=== PATIENT | male | born 1970 | race Two or more races ===

== ENCOUNTER → 2024-02-10 | Outpatient (CLI) | payer MEDICAID, SELFPAY ==
--- NOTE | 2024-02-10 16:52 | XR_ITS ---
Examination: Knee bilateral, 6 views Technique: Knee AP, lateral, oblique each knee total 6 views Date and time of exam: February 10, 2024 1704 hrs. Indications: Bilateral knee pain beginning 2 years ago. Findings: Mild osteopenia No fracture or dislocation involving either knee No erosive or other significant arthritic change involving either knee No opaque foreign bodies Impression: No erosive or other significant arthritic change involving either knee
== END | disposition home or self-care (01) ==
PROVIDERS: PCP Physician Assistant; Referring Provider Physician Assistant; Visit Provider Physician Assistant
DX: M25.562 Pain in left knee (principal); M25.561 Pain in right knee
CPT/HCPCS: 73562

== ENCOUNTER 2024-04-09 16:04 | Emergency (ER) | payer MEDICAID, SELFPAY ==
--- NOTE | 2024-04-09 16:14 | EKG_ITS ---
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
[2024-04-09 16:18] VITALS: BP 130/77; PULSE 63; RESP 18; TEMP 37.1; O2SAT 97; BMI 31.1
--- NOTE | 2024-04-09 16:23 | XR_ITS ---
Examination: PA lateral chest 2 views Technique: Upright PA lateral chest 2 views Exam date and time: April 09, 2024 1633 hrs. Indications: Difficulty breathing chest pain today. Findings: Early bibasilar lingular segment left upper lobe pneumonia Normal heart size The osseous structures are intact Impression: Early bibasilar lingular segment left upper lobe pneumonia
--- NOTE | 2024-04-09 16:23 | PD.EDRME ---
Rapid Medical Screening Exam E Arrival date/time: 04/09/24 16:04 54-year-old male with a history of MIs presents to the emergency room with a chief complaint of 10 out of 10 sternal chest pain that radiates down his left arm x 1 day. Patient is also stating that she has had shortness of breath since yesterday. I have greeted and performed a focused initial assessment of this patient. A comprehensive ED assessment and evaluation of the patient, analysis of all test results, and completion of the medical decision making process will be conducted by additional ED providers. Chief Complaint: Chest Pain Vital signs: Vital Signs Temperature 98.7 F 04/09/24 16:18 Pulse Rate 63 04/09/24 16:18 Respiratory Rate 18 04/09/24 16:18 Blood Pressure 130/77 04/09/24 16:18 Pulse Oximetry (%) 97 04/09/24 16:18 Oxygen Delivery Method Room Air 04/09/24 16:18 Vital signs reviewed by provider: Yes
[2024-04-09 16:50] LABS: Basophils % (Auto) 1 % (0-2.5); Eosinophils # (Auto) 0.1 Thou/mm3 (0.0-0.5); Eosinophils % (Auto) 1 % (0-10); Hematocrit 41.6 % (41.0-53.0); Hemoglobin 14.1 g/dL (13.5-16.0); Immature Granulocytes % (Auto) 0 % (0-0); Immature Granulocytes Auto 0.01 Thou/mm3 (0.00-0.00); Lymphocytes % (Auto) 41 % (10-50); Mean Corpuscular HGB Conc 33.9 g/dl (31.0-37.0); Mean Corpuscular Hemoglobin 29.1 pg (25.0-35.0); Mean Corpuscular Volume 86 fL (80-100); Monocytes # (Auto) 0.6 Thou/mm3 (0.0-0.8); Monocytes % (Auto) 8 % (0-12); Neutrophils # (Auto) 3.6 Thou/mm3 (1.8-7.7); Neutrophils % (Auto) 50 % (37-80); Nucleated Red Blood Cell % 0 /100 WBC (0); Platelet Count 247 Thou/mm3 (140-440); RDW Standard Deviation 40.1 fL (35.1-43.9); Red Blood Count 4.84 Miln/mm3 (4.50-5.90); White Blood Count 7.2 Thou/mm3 (3.8-10.6)
[2024-04-09 17:05] LABS: Collection Type, Urine Clean Catch
[2024-04-09 17:08] LABS: Bilirubin,Urine Negative (Negative); Blood,Urine 2+ (Negative); Clarity,Urine Clear (Clear/Hazy); Color,Urine Lt-Yellow (Lt Yel-Yel); Glucose, Urine Negative (Negative); Hyaline Casts,Urine < 1 /hpf (0-1); Ketones,Urine Negative (Negative); Leukocyte Esterase,Urine Negative (Negative); Nitrite,Urine Negative (Negative); Protein,Urine Negative (Neg - Trace); RBC,Urine 16 /hpf (0-3); Squamous Epithelial Cell,Urine < 1 /hpf (0-5); Urobilinogen,Urine Negative mg/dL (0.0-1.0); WBC,Urine 1 /hpf (0-5)
[2024-04-09 17:08] LABS: B-Type Natriuretic Peptide < 20 pg/mL (0-100)
[2024-04-09 17:10] LABS: Alanine Aminotransferase 38 U/L (10-49); Albumin, Serum 4.8 gm/dL (3.5-5.0); Albumin/Globulin Ratio 1.8 (1.2-2.2); Alkaline Phosphatase 69 U/L (46-116); Anion Gap 9 (7-16); Aspartate Amino Transferase 17 U/L (0-34); BUN/Creatinine Ratio 12 Ratio (12-20); Blood Urea Nitrogen 12 mg/dL (9-23); Calcium 10.1 mg/dL (8.3-10.6); Calcium (Corrected) 10.1 mg/dL (8.5-10.1); Carbon Dioxide 24.1 mMol/L (20.0-31.0); Chloride 105 mMol/L (98-107); Estimated Creatinine Clearance 96.7 mL/min (>60); Globulin 2.6 gm/dL (2.3-3.5); Glucose 102 mg/dL (74-106); Magnesium 2.1 mg/dL (1.6-2.6); Osmolality,Calculated 275 (275-295); Potassium 4.1 mMol/L (3.4-5.1); Sodium 138 mMol/L (136-145); Total Protein 7.4 gm/dL (5.7-8.2); Troponin I < 0.002 ng/mL (0.0-0.045); eGFR > 60 See Note
[2024-04-09 17:11] LABS: INR 1.1 (0.9-1.3); Partial Thromboplastin Time 28.1 Seconds (22.0-36.0); Prothrombin Time 12.2 Seconds (9.0-12.2)
[2024-04-09 17:14] LABS: Amphetamine/Methamp Scrn,U Negative (Negative); Barbiturate Screen,Urine Negative (Negative); Benzodiazepines Screen,Urine Negative (Negative); Benzoylecgonine Screen, Ur Negative (Negative); Fentanyl Screen,Urine Negative (Negative); Opiate Screen,Urine Negative (Negative); THC Screen,Urine Negative (Negative)
[2024-04-09 19:21] VITALS: BP 129/79; PULSE 61; RESP 19; TEMP 36.6; O2SAT 97
[2024-04-09] MEDS: AZITHROMYCIN 250 MG TABLET 500 MG PO (20:25)
--- NOTE | 2024-04-09 20:26 | EDNOTE_ITS ---
ED Chest Pain RME/HPI General Chief Complaint: Chest Pain Stated Complaint: CHEST PAIN RADIATING TO BACK (SENT FROM DR. HOOD) Time Seen by Provider: 04/09/24 20:06 Arrival date/time: 04/09/24 16:04 Limitations: no limitations RME / HPI RME / HPI narrative: 04/09/24 16:04 54-year-old male with a history of MIs presents to the emergency room with a chief complaint of 10 out of 10 sternal chest pain that radiates down his left arm x 1 day. Patient is also stating that she has had shortness of breath since yesterday. I have greeted and performed a focused initial assessment of this patient. A comprehensive ED assessment and evaluation of the patient, analysis of all test results, and completion of the medical decision making process will be conducted by additional ED providers. DR. MULLINS MAIN ED EVALUATION: 54 year old male with past medical history significant for IL and atrial fibrillation presents to the Emergency Department with complaint of chest pain that radiates toe the left arm. Patient was seen at her PCP today and sent over for further evaluation. Associated symptoms include shortness of breath. No fevers, chills, nausea, vomiting, diarrhea, or other symptoms at this time. PCP is at [facility]. Related Data Previous Rx's ?Medication ?Instructions ?Recorded azithromycin 250 mg tablet 250 mg PO QDAY 4 days #4 ta bs 04/09/24 Allergies Allergy/AdvReac Type Severity Reaction Status Date / Time No Known Allergies Allergy Verified 04/09/24 16:08 Review of Systems Review of Systems Systems Reviewed: All systems reviewed, normal except as documented Narrative Review of Systems: GEN: No fever, no chills, no weight loss EYES: No discharge, no visual changes, no pain HEENT: No ear pain, no congestion, no sore throat PULM: + shortness of breath, no cough, no congestion CV: + chest pain that radiates toe the left arm, no dyspnea on exertion, no palpitations GI: No nausea, no vomiting, no diarrhea, no pain, no constipation : No frequency, no urgency and no dysuria MUSC/SKEL: + left arm pain, no back pain SKIN: No rash PSYCH: No hallucinations, no depression HEME/LYMPH: No easy bleeding or bruising tendencies NEURO: No weakness, no headache Past Medical History Social History SMOKING STATUS: Never smoker ED Exam General Limitations: Present no limitations General appearance: Present alert and in no apparent distress Head Head exam: Present atraumatic, normocephalic and normal inspection Eye Eye exam: Present normal appearance, PERRL and EOMI ENT ENT exam: Present normal exam, normal oropharynx and mucous membranes moist Neck Neck exam: Present normal inspection, full ROM and trachea midline Chest Chest inspection: Present normal inspection and symmetric chest wall rise Respiratory Respiratory exam: Present normal lung sounds bilaterally Cardiovascular Cardiovascular exam: Present regular rate, normal rhythm and normal heart sounds Abdominal Exam Abdominal exam: Present soft and normal bowel sounds Extremities Exam Extremities exam: Present normal inspection and full ROM Back Exam Back exam: Present normal inspection and full ROM Neurological Exam Neurological exam: Present alert, oriented X3 and CN II-XII intact Psychiatric Psychiatric exam: Present normal affect and normal mood Skin Skin exam: Present warm, dry, intact and normal color Course Quality Measures none Orders Category Date Time Status EKG (ED ONLY) *Do not use* NOW Care 04/09/24 16:14 Completed EKG (ED Only) Stat Exams 04/09/24 16:14 Draft XR chest 2V Stat Exams 04/09/24 16:23 Completed B-Type Natriuretic Peptide Stat Lab 04/09/24 16:29 Completed CBC Stat Lab 04/09/24 16:29 Completed Comprehensive Metabolic Panel Stat Lab 04/09/24 16:29 Completed Drug Screen,Urine Stat Lab 04/09/24 14:56 Completed Magnesium Stat Lab 04/09/24 16:29 Completed Partial Thromboplastin Time Stat Lab 04/09/24 16:29 Completed Prothrombin Time with INR Stat Lab 04/09/24 16:29 Completed Troponin I Stat Lab 04/09/24 16:29 Completed Urinalysis Stat Lab 04/09/24 14:56 Completed Azithromycin Po [Zithromax PO] Med 04/09/24 20:12 Discontinued 500 mg PO X1 ONE Vital Signs Vital signs: Vital Signs Temperature 98.7 F 04/09/24 16:18 Pulse Rate 63 04/09/24 16:18 Respiratory Rate 18 04/09/24 16:18 Blood Pressure 130/77 04/09/24 16:18 Pulse Oximetry (%) 97 04/09/24 16:18 Oxygen Delivery Method Room Air 04/09/24 16:18 Procedures -ED EKG Interpretation #1: Date of EK04/09/24 Time of EK:22 Rate: 65 Interpretation: Interpreted by me Additional EKG comment: sinus rhythm, rate 65, normal interval, normal axis, no STEMI, QTc 444 Chest Pain MDM Narrative MDM Narrative:: Rosa Isela Roach, am scribing for and in the presence of Dr. Mullins. Patient data External records reviewed:: PCP records Clinical information provided by:: patient Social determinants that could affect healthcare access:: none Patient has the following chronic illnesses:: IL and atrial fibrillation How is presenting disease/condition affected by chronic disease/condition?: exacerbated by Evaluation data The following diagnostics were reviewed and interpreted by me:: lab results, radiology exam(s) and EKG tracing(s) Lab and/or radiology exams considered but not ordered:: none Interpretation Summary: Procedure(s): XR chest 2V Accession Number(s): [id number] cc: Rosalee Small; [place]; Keaton Berry MD~ Examination: PA lateral chest 2 views Technique: Upright PA lateral chest 2 views Exam date and time: April 09, 2024 1633 hrs. Indications: Difficulty breathing chest pain today. Findings: Early bibasilar lingular segment left upper lobe pneumonia Normal heart size The osseous structures are intact Impression: Early bibasilar lingular segment left upper lobe pneumonia Dictated By: Keaton Berry MD Medications / Prescriptions Medications or Prescriptions considered but not ordered:: none Medication administrations:: Medication Administration History Discontinued Medications Azithromycin (Azithromycin 250 Mg Tablet) 500 mg PO X1 ONE Stop: 04/09/24 20:13 Last Admin: 04/09/24 20:25 Dose: 500 mg Documented By: SE see above Consultations Consultation(s) initiated? (list below): No Diagnosis Chest Pain Differential Diagnosis: atypical chest pain, costochondritis, chest pain and other (Atypical pneumonia) Most likely diagnosis given after review of the tests above:: Atypical pneumonia Admission Indicated Admission indicated?: not indicated Admission Request Was there a request for admission?: No Disposition Plan Disposition Plan: Discharge Discharge Attestation Discharge Attestation: The patient and all family members were given an opportunity to ask questions and understood the discharge instructions. Discharge instructions specifically effects, indications for sooner follow up or return to the emergency department, and the expected course of current diagnosis. Patient condition: Stable Discharge Plan Plan Patient Disposition: HOME (Self Care) Patient condition on transfer: Stable Prescriptions/Referrals Prescriptions/Med Rec: New azithromycin 250 mg tablet 250 mg PO QDAY 4 Days Qty: 4 0RF Rx Instructions: start on day 2 of therapy Referrals: Rosalee Small PA-C [Primary Care Provider] - In 1 week Problem List Clinical Impression: Atypical pneumonia Patient/Caregiver Discharge Instructions Education Materials: ED Pneumonia (Adult) Additional Instructions: Today your chest x-ray that shows that you have left basilar pneumonia. Please take Z-Luis for the next 4 days. You can follow-up with your primary care again on Saturday for recheck. Return to the emergency department for any worsening symptoms, or any other concerns. Please return to the emergency department for any worsening symptoms, or any other concerns Print Language: Japanese Stand Alone Forms: Mae Award Info., Patient Portal Info Letter
== END 2024-04-09 20:32 | disposition home or self-care (01) ==
PROVIDERS: Nurse Practitioner Family; Emergency Provider Emergency Medicine; PCP Physician Assistant
DX: J18.9 Pneumonia, unspecified organism (principal); I25.2 Old myocardial infarction
CPT/HCPCS: 36415; 71046; 80053; 80307; 81001; 83735; 83880; 84484; 85025; 85610; 85730; 93005; 99283; A9270

== ENCOUNTER → 2024-09-10 | Outpatient (CLI) | payer MEDICAID, SELFPAY ==
--- NOTE | 2024-09-10 16:55 | XR_ITS ---
Examination: Lumbar spine, 5 views Technique: Lumbar spine AP, lateral, coned lateral lower lumbar spine, bilateral obliques 5 views Exam date and time: September 10, 2024, 7032 hours INDICATIONS: Back pain one year. FINDINGS: Moderate osteopenia. No lumbar fracture. Diffuse mild lumbar disc narrowing [id number] lumbar spondylosis No spondylolisthesis IMPRESSION: Diffuse mild lumbar disc narrowing
== END | disposition home or self-care (01) ==
PROVIDERS: PCP Physician Assistant; Referring Provider Physician Assistant; Visit Provider Physician Assistant
DX: M48.061 Spinal stenosis, lumbar region without neurogenic claudication (principal)
CPT/HCPCS: 72110

== ENCOUNTER 2024-09-12 02:13 | Observation (INO) | payer MEDICAID, SELFPAY ==
[2024-09-12] VITALS (10 sets, daily range): BP systolic 109–121; BP diastolic 59–80; PULSE 56–79; RESP 17–95; TEMP 36.1–36.6; O2SAT 94–96; BMI 28.5
--- NOTE | 2024-09-12 | XR_ITS ---
Examinations: MRI Brain without intravenous contrast. MRA brain without intravenous contrast. MRA carotids without intravenous contrast 3-D vascular reconstructions Date and time of exam: September 12, 2024 1348 hours INDICATIONS: Stroke alert September 12, 2024, onset left arm weakness facial pain and numbness Technique: Multiple axial and sagittal images of the brain have been obtained MRA brain carotid images without contrast obtained, including 3-D postprocessing, vascular maximum intensity projection images Findings: Sellaturcica is not enlarged. The optic chiasm and infundibular stalk are not remarkable. Prepontine and interpeduncular cisterns are not enlarged. No localized enlargement of the medulla or neel. Fourth ventricle and cerebellar tonsils normal in position. Subacute hemorrhage is not seen. Fourth ventricle is midline. Mass in the cerebellopontine angle region is not evident. 7th and 8th nerve complexes exhibits symmetry. Globes are symmetrical with no retro-orbital mass. Increased white matter signal not seen Diffusion-weighted images demonstrate no focus of restricted diffusion Mass-effect upon the ventricular system is not identified. MRA carotid images no carotid stenoses. MRA brain images no cerebral or special lateral conclusions Impression: Negative for acute hemorrhage mass effect or midline shift No acute infarct. No MR findings diagnostic for demyelinating disease No significant carotid stenoses No cerebral large vessel arterial occlusions
--- NOTE | 2024-09-12 02:50 | XR_ITS ---
Examination: CT brain head without contrast. 2-D sagittal coronal reconstructions Date and time of exam:September 12, 2024, 0305 hours INDICATIONS: Stroke alert, onset left-sided arm weakness left-sided body numbness left facial numbness beginning 12 hours ago CTDI: vol (mGy):49.81 DLP: (mGycm):1044 Technique: Multiple CT axial sections of the brain have been obtained, 5 mm slice thickness. Contrast has not been administered. 2-D sagittal, coronal reconstructions have been obtained Low dose protocols were performed. One or more of the following dose reduction techniques were used; automated exposure control, adjustment of the mA and/or KV according to patient size, use of iterative reconstruction technique. Findings: No significant ventricular enlargement. Intra-axial or extra-axial hemorrhage density is not seen. No mass effect or midline shift Basal cisterns are not remarkable. Fourth ventricle is midline. Cranial vault intact. Impression: Negative for acute hemorrhage, mass effect or midline shift As clinically warranted, brain MRI follow-up would best assess for demyelinating disease, acute ischemic change
--- NOTE | 2024-09-12 02:50 | XR_ITS ---
Examination: AP chest single view TECHNIQUE: AP portable upright chest single view Date and time: September 12, 2024, 0450 hours Comparison April 09, 2024 INDICATIONS: Stroke alert, shortness of breath chest pain today. FINDINGS: Mild prominence left ventricle No aspiration pneumonia or pulmonary edema Moderate osteopenia IMPRESSION: No aspiration pneumonia or pulmonary edema
--- NOTE | 2024-09-12 02:50 | XR_ITS ---
Examination: CTA carotids with intravenous contrast CTA brain, head with intravenous contrast. 2-D sagittal, coronal reconstructions. 3-D reconstructions. Exam date and time: September 12, 2024, 0309 hours INDICATIONS: Stroke alert, onset left arm weakness left side of body numbness left facial numbness beginning 12 hours ago CTDI: vol (mGy) 25.73 DLP: (mGycm) 606 Technique: Multiple CTA axial brain, head carotid images post intravenous contrast injection 75 cc, [id number]. 2-D sagittal, coronal reconstructions. 3-D reconstructions, 3-D post processing including vascular maximum intensity projection images. Low dose protocols were performed. One or more of the following dose reduction techniques were used; automated exposure control, adjustment of the mA and/or KV according to patient size, use of iterative reconstruction technique. Findings: 15 mm enhancing left thyroid nodule No significant common carotid carotid bifurcation or internal carotid artery stenoses Dominant left vertebral artery in the neck with no critical stenoses. No cerebral large vessel arterial occlusions or thrombus IMPRESSION: 15 mm enhancing left thyroid nodule, consider dedicated thyroid sonography follow up No significant neck arterial stenoses No cerebral large vessel arterial occlusions or thrombus
--- NOTE | 2024-09-12 02:50 | EKG_ITS ---
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
--- NOTE | 2024-09-12 02:56 | PC.NURSE ---
Case Consult 09/12/2024 02:56:37 [facility] Case # [id number] has been created.
--- NOTE | 2024-09-12 03:13 | PD.EDNEURO ---
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 Patient/daughter deny AMS, seizures, N/V, vision changes, slurred speech, and dizziness. Patient took some prednisone yesterday. Limitations: no limitations Related Data Allergies Allergy/AdvReac Type Severity Reaction Status Date / Time No Known Allergies Allergy Verified 09/12/24 02:27 Review of Systems Review of Systems Systems Reviewed: All systems reviewed, normal except as documented Constitutional Constitutional: Reports system reviewed and no additional complaints, except as documented, Denies fever(s) and Denies headache(s) ENT Ears, Nose, Mouth, and Throat: Denies disequilibrium and Denies headache(s) Cardiovascular Cardiovascular: Reports system reviewed and no additional complaints, except as documented, Reports as per HPI, Reports chest pain and Denies dyspnea Respiratory Respiratory: Reports system reviewed and no additional complaints, except as documented, Denies cough and Denies dyspnea Gastrointestinal Gastrointestinal: Reports system reviewed and no additional complaints, except as documented, Denies abdominal pain, Denies nausea and Denies vomiting Musculoskeletal Musculoskeletal: Reports numbness Neurologic Neurologic: Reports system reviewed and no additional complaints, except as documented, Reports as per HPI, Denies confusion, Denies disequilibrium, Denies headache(s) and Reports numbness Psychiatric Psychiatric: Denies confusion Past Medical History Past Medical History NEUROLOGIC: Positive Cerebrovascular Accident CARDIAC: Positive Cardiac Arrhythmia and Hypertension; Negative Congestive Heart Failure RESPIRATORY: Negative Chronic Obstructive Pulmonary Disease (COPD) GENITOURINARY: Negative Renal Disease MUSCULOSKELETAL: Positive Musculoskeletal Disorders ENDOCRINE: Negative Diabetes Mellitus Type 1 or Diabetes Mellitus Type 2 Social History SMOKING STATUS: Current every day smoker ED Exam General Limitations: Present no limitations General appearance: Present alert and in no apparent distress Head Head exam: Present atraumatic Eye Eye exam: Present normal appearance, PERRL and EOMI ENT ENT exam: Present normal oropharynx, mucous membranes moist and other (mild R facial droop) Neck Neck exam: Present normal inspection, full ROM and trachea midline Chest Chest inspection: Present normal inspection and symmetric chest wall rise Respiratory Respiratory exam: Present normal lung sounds bilaterally Cardiovascular Cardiovascular exam: Present regular rate, normal rhythm and normal heart sounds Abdominal Exam Abdominal exam: Present soft and normal bowel sounds Extremities Exam Extremities exam: Present normal inspection and full ROM Back Exam Back exam: Present normal inspection and full ROM Neurological Exam Neurological exam: Present alert, oriented X3 and CN II-XII intact Psychiatric Psychiatric exam: Present normal affect and normal mood Skin Skin exam: Present warm, dry, intact and normal color Course Quality Measures none Orders Category Date Time Status Admit to Inpatient Status Routine Admission 09/12/24 05:43 Active Patient Condition Routine Admission 09/12/24 05:43 Ordered Bedside Blood Glucose NOW Care 09/12/24 02:50 Active Bedside COVID-19 Antigen Test NOW Care 09/12/24 05:42 Active COVID-19 Screening Questionnaire NOW Care 09/12/24 04:49 Active Helicopter Repairer NOW Care 09/12/24 02:50 Active Continuous Pulse Oximetry NOW Care 09/12/24 02:50 Completed Continuous Pulse Oximetry NOW Care 09/12/24 05:43 Active Decision to Admit X1 Care 09/12/24 04:49 Active EKG (ED ONLY) *Do not use* NOW Care 09/12/24 02:50 Completed Insert IV NOW Care 09/12/24 02:50 Active MRI Screening NOW Care 09/12/24 05:50 Active Miscellaneous Nursing Order NOW Care 09/12/24 05:48 Active NIH Stroke Scale now Care 09/12/24 02:50 Active NPO NOW Care 09/12/24 02:50 Active Notify provider NEEDED Care 09/12/24 05:43 Active Nurse Swallow Screen x1 Care 09/12/24 02:50 Active Consult to Neurology / Tele-Neurology Routine Cons 09/12/24 02:50 Active Diet Cardiac Diet 09/12/[address] angio stroke protocol Stat Exams 09/12/24 02:[address] stroke protocol Stat Exams 09/12/24 02:50 Taken EKG (ED Only) Stat Exams 09/12/24 02:50 Draft MR stroke protocol brain wo con with MRA head and neck Exams 09/12/24 Ordered Stat XR chest 1V portable Stat Exams 09/12/24 02:50 Taken CBC AM DRAW Lab 09/13/24 05:00 Ordered CBC AM DRAW Lab 09/14/24 05:00 Ordered CBC AM DRAW Lab 09/15/24 05:00 Ordered CBC Stat Lab 09/12/24 03:03 Completed Comprehensive Metabolic Panel AM DRAW Lab 09/13/24 05:00 Ordered Comprehensive Metabolic Panel AM DRAW Lab 09/14/24 05:00 Ordered Comprehensive Metabolic Panel AM DRAW Lab 09/15/24 05:00 Ordered Comprehensive Metabolic Panel Stat Lab 09/12/24 03:03 Completed Drug Screen,Urine Stat Lab 09/12/24 04:42 Completed Lipid Panel Routine Lab 09/12/24 05:46 Ordered Magnesium AM DRAW Lab 09/13/24 05:00 Ordered Magnesium Stat Lab 09/12/24 03:03 Completed Partial Thromboplastin Time Stat Lab 09/12/24 03:03 Completed Phosphorous AM DRAW Lab 09/13/24 05:00 Ordered Prothrombin Time with INR Stat Lab 09/12/24 03:03 Completed Thyroid Stimulating Hormone Routine Lab 09/13/24 05:46 Ordered Troponin I Stat Lab 09/12/24 03:03 Completed Troponin I Urgent Lab 09/12/24 05:46 Ordered Urinalysis Stat Lab 09/12/24 04:42 Completed Urine Culture Stat Lab 09/12/24 04:42 Received Acetaminophen Tab [Tylenol Tab] Med 09/12/24 05:43 Ordered 650 mg PO Q6H PRN Enoxaparin [Lovenox] Med 09/12/24 09:00 Ordered 40 mg SC QDAY Ondansetron Inj [Zofran Inj] Med 09/12/24 05:43 Ordered 4 mg IVP Q6H PRN Senna [Senokot] Med 09/12/24 05:43 Ordered 1 tab PO QDAY PRN Code Status Routine Oth 09/12/24 05:43 Ordered EKG (RT) Urgent RT 09/12/24 05:43 Ordered Oxygen Delivery NOW RT 09/12/24 02:50 Active Oxygen Delivery PRN RT 09/12/24 05:43 Active Vital Signs Vital signs: Vital Signs Temperature 97.9 F 09/12/24 02:20 Pulse Rate 77 09/12/24 02:20 Respiratory Rate 18 09/12/24 02:20 Blood Pressure 116/70 09/12/24 02:20 Pulse Oximetry (%) 95 09/12/24 02:20 Oxygen Delivery Method Room Air 09/12/24 02:20 O2 at 95% on RA and WNLs Neuro Symptoms / Deficit MDM Narrative MDM Narrative:: 54M with history of possible CVA, 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 Patient/daughter deny AMS, seizures, N/V, vision changes, slurred speech, and dizziness. Patient took some prednisone yesterday. Physical exam reveals normal pupil response and EOM. CN II-XII grossly intact except for mild R facial droop. Patient/daughter confirm the facial droop is not normal for him and is not residual from possible previous strokes. Neg pronator test. Gait normal. Speech normal. Blinking normal. Patient is afebrile, calm, and alert. Stroke alert called. CT/CTA unremarkable. EKG is NSR. All labs unremarkable including normal trop. Spoke to teleneuro (see note) who recommends admit and MRI. Spoke to IM resident who reports to Dr. Woods, who will admit patient for further evaluation. 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) and CAD How is presenting disease/condition affected by chronic disease/condition?: exacerbated by Evaluation data The following diagnostics were reviewed and interpreted by me:: lab results, radiology exam(s) and EKG tracing(s) Lab and/or radiology exams considered but not ordered:: ordered Interpretation Summary: above Medications / Prescriptions Medications or Prescriptions considered but not ordered:: ordered Medication administrations:: Medication Administration History Acetaminophen (Acetaminophen 325 Mg Tablet) 650 mg PO Q6H PRN PRN Reason: Fever >100.3 or pain 1-3 Stop: 10/12/24 05:42 Enoxaparin Sodium (Enoxaparin Sod Inj 40 Mg/0.4 Ml Syringe) 40 mg SC QDAY ELLI Stop: 09/26/24 08:59 Ondansetron HCl (Ondansetron Inj 2 Mg/Ml Inj 2 Ml) 4 mg IVP Q6H PRN; Protocol PRN Reason: NAUSEA OR VOMITING Stop: 10/12/24 05:42 Sennosides (Senna Tablet) 1 tab PO QDAY PRN; Protocol PRN Reason: constipation Stop: 10/12/24 05:42 above Consultations Consultation(s) initiated? (list below): Yes Diagnosis Neuro Differential Diagnosis: carpal tunnel syndrome, convulsions, delirium, subarachnoid hemorrhage, peripheral neuropathy, cerebrovascular accident, multiple sclerosis, transient cerebral ischemia and other (stroke-like symptoms, ACS) Most likely diagnosis given after review of the tests above:: stroke-like symptoms Admission Indicated Admission indicated?: indicated Admission Request Was there a request for admission?: Yes Admission Attestation Admission request attestation: Discussed case with [Peggy] from Hospitalist service regarding admission. Discussed patients ED course, exam findings, labs, and radiology results. The Hospitalist [agrees] to accept the patient for admission. Disposition Plan Disposition Plan: Admit Discharge Plan Plan Patient Disposition: Admit Acute Care w/in Hospital Problem List Clinical Impression: Stroke-like symptom Patient/Caregiver Discharge Instructions Print Language: Kazakh Stand Alone Forms: Mae Award Info., Patient Portal Info Letter
[2024-09-12 03:15] LABS: Basophils # (Auto) 0.0 Thou/mm3 (0.0-0.2); Basophils % (Auto) 0 % (0-2.5); Eosinophils # (Auto) 0.0 Thou/mm3 (0.0-0.5); Eosinophils % (Auto) 0 % (0-10); Hematocrit 44.1 % (41.0-53.0); Hemoglobin 14.6 g/dL (13.5-16.0); Immature Granulocytes Auto 0.08 Thou/mm3 (0.00-0.00); Lymphocytes # (Auto) 3.0 Thou/mm3 (1.0-4.8); Lymphocytes % (Auto) 26 % (10-50); Mean Corpuscular HGB Conc 33.1 g/dl (31.0-37.0); Mean Corpuscular Hemoglobin 29.1 pg (25.0-35.0); Mean Corpuscular Volume 88 fL (80-100); Monocytes # (Auto) 0.9 Thou/mm3 (0.0-0.8); Monocytes % (Auto) 8 % (0-12); Neutrophils # (Auto) 7.5 Thou/mm3 (1.8-7.7); Neutrophils % (Auto) 66 % (37-80); Nucleated Red Blood Cell # 0.00 Thou/mm3 (0.00-0.00); Nucleated Red Blood Cell % 0 /100 WBC (0); Platelet Count 269 Thou/mm3 (140-440); RDW Standard Deviation 41.3 fL (35.1-43.9); Red Blood Count 5.01 Miln/mm3 (4.50-5.90); White Blood Count 11.5 Thou/mm3 (3.8-10.6)
--- NOTE | 2024-09-12 03:20 | PRELIM_ITS ---
CT scan of the head without intravenous contrast (axial sections with sagittal and coronal reformats) September 12, 2024 0304 hours Clinical History: Focal neuro deficit, stroke suspected Comparison: None. Findings: There is no evidence of intracranial hemorrhage, mass effect or midline shift. There is mild volume loss. The calvarium is unremarkable. The mastoid air cells and the visualized paranasal sinuses are clear. Impression: No evidence of intracranial hemorrhage, mass effect or midline shift. Mild volume loss. Aspect score 10. Discussion Details: Results verbally communicated to : Dr. Tavares at 03:16 AM 09/12/2024 Report Electronically Signed By: Killian Sykes 09/12/2024 3:20:07 AM [EST]
[2024-09-12 03:30] LABS: INR 1.1 (0.9-1.3); Partial Thromboplastin Time 26.8 Seconds (22.0-36.0); Prothrombin Time 11.7 Seconds (9.0-12.2)
[2024-09-12 03:35] LABS: Alanine Aminotransferase 21 U/L (10-49); Albumin, Serum 5.0 gm/dL (3.5-5.0); Albumin/Globulin Ratio 2.0 (1.2-2.2); Alkaline Phosphatase 68 U/L (46-116); Anion Gap 10 (7-16); Aspartate Amino Transferase 26 U/L (0-34); BUN/Creatinine Ratio 8 Ratio (12-20); Bilirubin,Total 0.4 mg/dL (0.3-1.2); Blood Urea Nitrogen 8 mg/dL (9-23); Calcium 9.7 mg/dL (8.3-10.6); Calcium (Corrected) 9.7 mg/dL (8.5-10.1); Carbon Dioxide 25.1 mMol/L (20.0-31.0); Chloride 106 mMol/L (98-107); Creatinine (Component) 1.0 mg/dL (0.6-1.3); Estimated Creatinine Clearance 103.5 mL/min (>60); Globulin 2.5 gm/dL (2.3-3.5); Glucose 135 mg/dL (74-106); Magnesium 1.8 mg/dL (1.6-2.6); Osmolality,Calculated 281 (275-295); Potassium 4.2 mMol/L (3.4-5.1); Sodium 141 mMol/L (136-145); Total Protein 7.5 gm/dL (5.7-8.2); Troponin I < 0.002 ng/mL (0.0-0.045); eGFR > 60 See Note
--- NOTE | 2024-09-12 04:03 | PRELIM_ITS ---
CT angiogram of the head and neck with intravenous contrast (axial sections with sagittal and coronal reformats) September 12, 2024 0309 hours Clinical History: Focal neuro deficit, stroke suspected Comparison: CT of September 12, 2024. Findings: Head: The internal carotid, middle and anterior cerebral arteries are patent bilaterally. The intracranial vertebral arteries are patent. The vertebrobasilar junction, basilar and posterior cerebral arteries are patent. No evidence of large vessel occlusion, critical stenosis or aneurysm. Neck: The aortic arch to the extent visualized as well as the origins of the right brachiocephalic, left common carotid, and left subclavian arteries are patent. The common carotid arteries, carotid bulbs, and internal and external carotid arteries are patent. The origins of the vertebral arteries are unremarkable. The left vertebral artery is dominant. No evidence of vascular occlusion, critical stenosis, dissection or aneurysm. Heterogenous nodular thyroid. Anterior fusion hardware noted in the spine. No acute fracture. Loss of physiologic cervical lordosis. Impression: Head: No evidence of large vessel occlusion, critical stenosis or aneurysm. Neck: No evidence of vascular occlusion, critical stenosis, dissection or aneurysm. Heterogenous nodular thyroid. Correlation with thyroid function tests and ultrasound is recommended. Report Electronically Signed By: Killian Sykes 09/12/2024 4:02:56 AM [EST]
--- NOTE | 2024-09-12 04:41 | ESCONSULT_ITS ---
Tele Neuro Consultation Consultation Date 09/12/24 Most Recent Vital Signs Last Vital Signs Temp 97.9 F 09/12/24 02:20 Pulse 73 09/12/24 03:40 Resp 18 09/12/24 02:20 BP 116/70 09/12/24 02:20 Pulse Ox 95 09/12/24 02:20 O2 Del Method Room Air 09/12/24 02:20 Laboratory-Coagulation Panel PT 11.7 Seconds (9.0-12.2) 09/12/24 03:03 INR 1.1 (0.9-1.3) 09/12/24 03:03 APTT 26.8 Seconds (22.0-36.0) 09/12/24 03:03 Consultation Narrative [facility] Patient Name:???Hilda Segundo Date of :???1970 Identification Number:??? Date of Service:???09/12/2024 02:56:37 Diagnosis:?R20.2 - Paresthesia of skin Impression: ?This is a 54 year old man with history of hypertension and heart troubles here with spells characterized by left sided numbness/weakness, shortness of breath, and chest pain, stroke alert called for the same. He has not been *completely* normal since 3:30 pm the day prior to presentation. Also- he is on Xarelto. So- he is not a candidate for IV thrombolytics. When I saw him- he had only mild sensory loss. It is possible that these are transient ischemic attacks it is also possible that his spells are due to an underlying cardiac issue. Given that his deficit was mild- at the time of my evaluation- if this *is* a stroke- it is a small stroke. So- overall- risks of stopping anticoagulation outweigh risks of continuing anticoagulation (if I were worried about a more definitive, large stroke I would recommend stopping AC in order to decrease chance for hemorrhagic conversion). Given that we are continuing anticoagulation- I would like some measure of blood pressure control. However- I would also like to allow for *some* permissive hypertension. In someone with more definitive stroke, with anticoagulation held- I would allow up to 220/120- here I recommend SBP<180 Our recommendations are outlined below. Recommendations: ? Stroke/Telemetry Floor ? Neuro Checks (Q4) ? Bedside Swallow Eval ? DVT Prophylaxis ? IV Fluids, Normal Saline ? Head of Bed 30 Degrees ? Euglycemia and Avoid Hyperthermia (PRN Acetaminophen) ?Continue home anticoagulation regimen ?SBP<180 ?MRI brain cardiac monitoring ha1c fasting lipid ?PT OT Speech as appropriate Advanced Imaging: CTA Head and Neck Completed. LVO:No Patient is not a candidate for RENE Metrics: Last Known Well: 09/11/2024 15:30:00 Dispatch Time: 09/12/2024 02:56:36 Arrival Time: 09/12/2024 02:13:00 Initial Response Time: 09/12/2024 02:58:05Symptoms: left sided numbness. Initial patient interaction: 09/12/2024 03:21:00 NIHSS Assessment Completed: 09/12/2024 03:27:00Patient is not a candidate for Thrombolytic. Thrombolytic Medical Decision: 09/12/2024 03:27:00Patient was not deemed candidate for Thrombolytic because of following reasons: LKW outside 4.5 hr window. . Use of NOAC in last [address] Head: CT head unremarkable for acute infarction or hemorrhage per Radiology: negative acute per radiology Primary Provider Notified of Diagnostic Impression and Management Plan on: 09/12/2024 04:34:25 History of Present Illness:Patient is a 54 year old Male. Patient was brought by private transportation with symptoms of left sided numbness. This is a 54 year old man with history of hypertension and heart troubles here with left sided weakness and numbness stroke alert called for the same. The patient has had 5 spells characterized by shortness of breath, chest pain, and left sided numbness/weakness, each lasting minutes as opposed to seconds or hours. The patient has not felt *completely* at his normal since 3:30 pm the day prior to presentation when his first episode occurred. He also has chest pain and headache. An motor vehicle parts interpreter was offered but politely declined- his daughter helped interpret. Past Medical History: ?Hypertension Other PMH:? Has heart troubles- his daughter had an echocardiogram report and- hospital staff read some of the findings to me. There was mention of ventricular tachycardia and valvular disease. Medications: Anticoagulant use:??Yes?Xarelto Antiplatelet use:?Yes?Plavix Reviewed EMR for current medications Allergies:? Reviewed Social History: Drug Use: No Family History: There is no family history of premature cerebrovascular disease pertinent to this consultation ROS : 14 Points Review of Systems was performed and was negative except mentioned in HPI. Past Surgical History: There Is No Surgical History Contributory To Today?s Visit Examination: BP(115/77),?Pulse(63), 1A: Level of Consciousness - Alert; keenly responsive?+ 0 1B: Ask Month and Age - Both Questions Right?+ 0 1C: Blink Eyes & Squeeze Hands - Performs Both Tasks?+ 0 2: Test Horizontal Extraocular Movements - Normal?+ 0 3: Test Visual Patel - No Visual Loss?+ 0 4: Test Facial Palsy (Use Grimace if Obtunded) - Normal symmetry?+ 0 5A: Test Left Arm Motor Drift - No Drift for 10 Seconds?+ 0 5B: Test Right Arm Motor Drift - No Drift for 10 Seconds?+ 0 6A: Test Left Leg Motor Drift - No Drift for 5 Seconds?+ 0 6B: Test Right Leg Motor Drift - No Drift for 5 Seconds?+ 0 7: Test Limb Ataxia (FNF/Heel-Patel) - No Ataxia?+ 0 8: Test Sensation - Mild-Moderate Loss: Less Sharp/More Dull?+ 1 9: Test Language/Aphasia - Normal; No aphasia?+ 0 10: Test Dysarthria - Normal?+ 0 11: Test Extinction/Inattention - No abnormality?+ 0 NIHSS Score:?1 Pre-Morbid Modified [place] Scale:0 Points = No symptoms at all Spoke with :Norm This consult was conducted in real time using interactive audio and video technology. Patient was informed of the technology being used for this visit and agreed to proceed. Patient located in hospital and provider located at home/office setting. Patient is being evaluated for possible acute neurologic impairment and high probability of imminent or life-threatening deterioration. I spent total of 44 minutes providing care to this patient, including time for face to face visit via telemedicine, review of medical records, imaging studies and discussion of findings with providers, the patient and/or family. Dr Dottie Drummond [facility] For Inpatient follow-up with [facility] physician please call [facility] at . As we are not an outpatient service for any post hospital discharge needs please contact the hospital for assistance. If you have any questions for the [facility] physicians or need to reconsult for clinical or diagnostic changes please contact us via [facility] at . Signature :Darius Drummond
[2024-09-12 04:49] LABS: Collection Type, Urine Clean Catch; Squamous Epithelial Cell,Urine 0 /hpf (0-5)
[2024-09-12 04:52] LABS: Bilirubin,Urine Negative (Negative); Blood,Urine Trace (Negative); Clarity,Urine Clear (Clear/Hazy); Color,Urine Colorless (Lt Yel-Yel); Glucose, Urine Negative (Negative); Ketones,Urine Negative (Negative); Leukocyte Esterase,Urine Negative (Negative); Nitrite,Urine Negative (Negative); PH,Urine 6.5 (5.0-7.0); Protein,Urine Negative (Neg - Trace); RBC,Urine 2 /hpf (0-3); Urobilinogen,Urine Negative mg/dL (0.0-1.0); WBC,Urine 1 /hpf (0-5)
[2024-09-12 04:56] LABS: Specific Gravity,Urine < 1.005 (1.001-1.035)
[2024-09-12 04:59] LABS: Amphetamine/Methamp Scrn,U Negative (Negative); Barbiturate Screen,Urine Negative (Negative); Benzodiazepines Screen,Urine Negative (Negative); Benzoylecgonine Screen, Ur Negative (Negative); Fentanyl Screen,Urine Negative (Negative); Opiate Screen,Urine Negative (Negative); THC Screen,Urine Negative (Negative)
--- NOTE | 2024-09-12 05:52 | ESHP_ITS ---
Documentation for date of: 09/12/24 HPI History of Present Illness Chief complaint: left arm and hand feels odd History of present illness: Hilda Segundo is 54 yr male with PMH of HTN, V fib and started on amiodarone, and stroke 2 yrs ago who is presenting to ED due to left arm/face tingling, numbness. This started yesterday around 3 pm. Stated that he felt similar sensation to the stroke he had in the past. Daughter was at bedside who assisted with translation. 2 years ago when stroke occurred patient was residing in [place]. He had a cardiac workup done at that time which showed an EF of 54%, V-fib which he was started on amiodarone, cardiac cath done which was negative for any severe stenosis. He is following with cardiology Dr. Tobin with last visit a few months ago. His solid waste collector stopped aspirin and physician in [place] stopped his Xarelto. Patient endorses SOB, headache, feels like pulse is bounding, and chest discomfort as well. SOB also occurs when walking short distances as around the house. In ED, vitals were stable. Labs benign with negative troponins. EKG negative for acute ST changes. Stroke alert called. CT head negative, CTA head and neck negative for LVO or stenosis. He was not a candidate for any thrombolytics. NIHSS score 1 by tele neuro. Patient to be admitted for workup CVA. PMH: as noted above PSH: neck disc surgery 2 yrs ago FamHx: possible stroke in mother, heart attack in other family members Social: unemployed. Started vaping 1 month ago, no drinking Meds: Amiodarone 200 mg daily, bisoprolol 10 mg daily, rosuvastatin 10 mg daily, clopidogrel 75 mg daily. Xarelto was stopped by solid waste collector in [place] and aspirin was stopped by solid waste collector in [place]. Allergies: NKDA Review of Systems Review of Systems Systems Reviewed: All systems reviewed, normal except as documented Exam Vital Signs Temp Pulse Resp BP Pulse Ox O2 Del Method 97.8 F 60 18 121/80 95 Room Air 09/12/24 04:54 09/12/24 04:54 09/12/24 04:54 09/12/24 04:54 09/12/24 04:54 09/12/24 04:54 Narrative Exam General: Middle age male, No acute distress, cooperative HEENT: NCAT, No JVD noted. Mucosa moist. Pupils are equal and reactive to light bilaterally Cardiovascular: Normal S1 and S2. Regular rate and rhythm. Respiratory: Lungs are clear to auscultation bilaterally. No wheezing or crackles heard. Abdomen: Soft, nontender, not distended, normal bowel sounds. Skin: Warm to touch, dry, no rashes noted Musculoskeletal: No gross injuries. Able to move all 4 extremities. No pitting edema Neuro: Alert and oriented x3. No focal neuro deficits. Psych: Normal affect and mood Results: Labs 09/12/24 03:03 09/12/24 03:03 Labs: Short CBC 09/12/24 Range/Units 03:03 WBC 11.5 H (3.8-10.6) Thou/mm3 Hgb 14.6 (13.5-16.0) g/dL Hct 44.1 (41.0-53.0) % Plt Count 269 (140-440) Thou/mm3 BMP 09/12/24 03:03 Sodium 141 Potassium 4.2 Chloride 106 Carbon Dioxide 25.1 BUN 8 L Creatinine 1.0 Glucose 135 H Calcium 9.7 Cardiac Enzymes 09/12/24 Range/Units 03:03 Troponin I < 0.002 (0.0-0.045) ng/mL Liver Function 09/12/24 Range/Units 03:03 Total Bilirubin 0.4 (0.3-1.2) mg/dL AST 26 (0-34) U/L ALT 21 (10-49) U/L Alkaline Phosphatase 68 (46-116) U/L Albumin 5.0 (3.5-5.0) gm/dL Urine 09/12/24 Range/Units 04:42 Urine Color Colorless A (Lt Yel-Yel) Urine Clarity Clear (Clear/Hazy) Urine pH 6.5 (5.0-7.0) Ur Specific [place] < 1.005 (1.001-1.035) Urine Protein Negative (Neg - Trace) Urine Glucose (UA) Negative (Negative) Quality Measures Quality Measures none Medications Home Medications and Allergies Home Medications ?Medication ?Instructions ?Recorded ?Confirmed ?Type amiodarone 200 mg tablet 200 mg PO QDAY 09/12/24/04/07 History aspirin 81 mg tablet,delayed 81 mg PO QDAY 09/12/24 History release bisoprolol fumarate 10 mg tablet 10 mg PO QDAY 5 09/12/24 History clopidogrel 75 mg tablet 75 mg PO QDAY 09/12/2409/12 History prednisone 20 mg tablet 20 mg PO QDAY 09/12/2409/12 History rosuvastatin 40 mg tablet 40 mg PO QDAY 09/12/2409/12 History Allergies Allergy/AdvReac Type Severity Reaction Status Date / Time No Known Allergies Allergy Verified 09/12/24 02:27 Visit Medications Acetaminophen (Acetaminophen 325 Mg Tablet) 650 mg PO Q6H PRN PRN Reason: Fever >100.3 or pain 1-3 Stop: 10/12/24 05:42 Enoxaparin Sodium (Enoxaparin Sod Inj 40 Mg/0.4 Ml Syringe) 40 mg SC QDAY ELLI Stop: 09/26/24 08:59 Ondansetron HCl (Ondansetron Inj 2 Mg/Ml Inj 2 Ml) 4 mg IVP Q6H PRN; Protocol PRN Reason: NAUSEA OR VOMITING Stop: 10/12/24 05:42 Sennosides (Senna Tablet) 1 tab PO QDAY PRN; Protocol PRN Reason: constipation Stop: 10/12/24 05:42 Assessment & Plan Plan Hilda Segundo is 54 yr male with PMH of HTN, A fib and started on amiodarone, and stroke 2 yrs ago who is presenting to ED due to left arm/face tingling, numbness. This started yesterday around 3 pm. Stroke alert initiated. Patient to be admitted for workup CVA. #CVA rule out #Left arm weakness/numbness #Hx of ischemic stroke CVA vs TIA vs cardiac etiology Symptoms started yesterday 3 PM. Endorsing left arm weakness, odd sensation, feels bounding pulses in his lower portion of face as well. Stroke alert was initiated in the ED until he neuro assessed the patient. NIHSS score was 1. Not a candidate for any thrombolytics. Xarelto was stopped 2 years ago and aspirin was discontinued recently by solid waste collector in [place]. Troponins are negative, EKG negative for acute ischemic changes. CT head negative, CTA head and neck negative for LVO or stenosis. Plan: ?Tele neuro recs: continue aspirin 81mg and Plavix 75mg daily (at the time of tele visit, neurologist was not aware that patient no longer taking Xarelto). ? Echo with bubble study pending ? MRI pending ?Physical therapy/speech pathology referral pending ? N.p.o. until patient passes bedside swallow screen ? Head of bed elevation 30 degrees ? Continue permissive hypertension for 24 hours as per neurorecommendations ? 10 mg IV labetalol every 4 hours as needed if BP 220/120 ?Lipid panel pending -Continue home plavix and add aspirin per neuro recommendation (Called tele neuro to inform them that patient is not on Xaralto and recommended starting ASA 81mg daily) -atorvastatin 40mg daily -amiodarone 200mg daily -repeat troponins pending -repeat EKG -A1c, TSH pending #Hx of A.Fib #HTN BP stable 116/70 on admission. Takes bisprolol 10mg daily EKG shows sinus rhythm -hold for permissive htn -Resume home Amiodarone pending med rec. -Hold Bisoprolol for permissive HTN Health maintenance: Dispo: tele for CVA workup FEN: cardiac DVT prophylaxis: Lovenox 40mg CODE STATUS: Full code The patient's management plan was discussed with my attending physician Dr. Woods. Sarah Gutierrez, PGY-2 Attending Provider Attestation/Addendum Attending Provider Attestation/Addendum Patient admitted for stroke workup after he was seen in ED by teleneuro whom recommended admission. Patient reported numbness sensation extending to his left neck and down his left arm, states that symptoms were similar to prior stroke episode he had. Patient's neuro exam in ED was negative, CT/CTA head and neck negative for acute changes, ekg showed sinus rhythm, patient reports having a heart arrythmia for which he is on Amiodarone along with a thrombi but isn't aware of more details. Patient was taken off his Xaralto by his solid waste collector Dr. Tboin as he stated he no longer needs it along with stopping his Aspirin 81mg, and only recommended continuing Plavix. Patient will be admitted continuation of stroke workup. Patient's labs were normal with negative troponin, no EKG findings concerning for ACS. At time of evaluation in ED patient reported resolution of his symptoms. Will continue to monitor patient pending further imaging and neuro recommendations. After examination of the patient and review of the clinical data and neuro recommendations I feel that this patient needs admission to the hospital for further treatment/evaluation. I Bronson Woods MD, attest that I was physically present for dominguez portions of evaluation, and examined patient, labs and imaging of patient were reviewed with the residents and a plan of care was discussed IM residents team, and I agree with the findings and plans documented above.
[2024-09-12 06:56] LABS: Cardiac Risk Estimate 3.6 RATIO (4.0-6.7); Cholesterol 167 mg/dL (132-200); HDL Cholesterol 47 mg/dL (40-60); LDL Cholesterol,Calculated 102 mg/dL (0-130); Triglycerides 90 mg/dL (30-150); Troponin I < 0.002 ng/mL (0.0-0.045)
[2024-09-12] MEDS: ASPIRIN EC 81 MG TABEC PO (09:55)
[2024-09-12] MEDS: CLOPIDOGREL BISULFATE 75 MG TABLET PO (09:55)
[2024-09-12] MEDS: ENOXAPARIN SOD INJ 40 MG/0.4 ML SYRINGE SC (09:55)
[2024-09-12] MEDS: AMIODARONE HCL 200 MG TABLET PO (09:55)
--- NOTE | 2024-09-12 11:40 | PD.RESPRO ---
Documentation for date of: 09/12/24 Subjective Subjective Interval history: Patient was seen and examined at bedside. Reported mild improvement of his symptoms. He reported that he has tingling and numbness that affect his left upper extremity neck and the left side of his face and head. He reported that the symptoms come and episodes last for 2 to 3 minutes and then disappears. He reported that he also feel numbness on the tip of his left shoulder. On questioning he mentions that he had history of cervical surgery and he was questioning if that could be the reason of his symptoms. He denied any trigger of his symptoms with head movement, he reported that he has a sister with migraines. He denied any headache, blurry vision, chest pain, shortness of breath. He participated in physical therapy and speech eval all of them are within normal limits. Patient pending echo and MRI. NIHSS score 0 Exam Vital Signs Temp Pulse Resp BP Pulse Ox O2 Del Method 97.6 F 71 19 111/59 L 94 L Room Air 09/12/24 08:00 09/12/24 09:55 09/12/24 08:00 09/12/24 09:55 09/12/24 08:00 09/12/24 08:00 Narrative Exam GEN: AOx3, able to speak full sentences HEENT: NC/AC, PERRLA, oral mucosa moist, neck supple CVS: RRR, S1-S2 present, no murmurs appreciated RESP: CTAB GI: soft,non distended, non tender, NBS MSK: able to move all 4 limbs, no lower extremity edema SKIN: warm and dry HOME [employer]: CN II-XII and Sensation grossly intact. Objective Labs 09/12/24 03:03 09/12/24 03:03 Labs: Laboratory Results - last 24 hr 09/12/24 09/12/24 09/12/24 03:03 04:42 06:18 WBC 11.5 H RBC 5.01 Hgb 14.6 Hct 44.1 MCV 88 MCH 29.1 MCHC 33.1 RDW Std Deviation 41.3 Plt Count 269 Neut % (Auto) 66 Lymph % (Auto) 26 [place] % (Auto) 8 Eos % (Auto) 0 Baso % (Auto) 0 Neut # (Auto) 7.5 Lymph # (Auto) 3.0 [place] # (Auto) 0.9 H Eos # (Auto) 0.0 Baso # (Auto) 0.0 Immature Gran # (Auto) 0.08 H Absolute Nucleated RBC 0.00 Immature Gran % 1 H Nucleated RBC % 0 PT 11.7 INR 1.1 APTT 26.8 Sodium 141 Potassium 4.2 Chloride 106 Carbon Dioxide 25.1 Anion Gap 10 BUN 8 L Creatinine 1.0 Estim Creat Clear Calc 103.5 eGFR > 60 BUN/Creatinine Ratio 8 L Glucose 135 H Calculated Osmolality 281 Calcium 9.7 Corrected Calcium 9.7 Magnesium 1.8 Total Bilirubin 0.4 AST 26 ALT 21 Alkaline Phosphatase 68 Troponin I < 0.002 < 0.002 Total Protein 7.5 Albumin 5.0 Globulin 2.5 Albumin/Globulin Ratio 2.0 Triglycerides 90 Cholesterol 167 LDL Cholesterol, Calc 102 HDL Cholesterol 47 Cholesterol/HDL Ratio 3.6 L Ur Collection Type Clean Catch Urine Color Colorless A Urine Clarity Clear Urine pH 6.5 Ur Specific [place] < 1.005 Urine Protein Negative Urine Glucose (UA) Negative Urine Ketones Negative Urine Blood Trace Urine Nitrite Negative Urine Bilirubin Negative Urine Urobilinogen (Auto) Negative Ur Leukocyte Esterase Negative Urine RBC 2 Urine WBC 1 Ur Squamous Epith Cells 0 Urine Bacteria None Urine Opiates Screen Negative Urine Fentanyl Screen Negative Ur Barbiturates Screen Negative U Amphetamin/Meth Scrn Negative U Benzodiazepines Scrn Negative U Cocaine Metab Screen Negative U Marijuana (THC) Screen Negative Quality Measures Quality Measures none Assessment & Plan Assessment Current Active Medications: Generic Name Dose Route Start Last Admin Trade Name Freq PRN Reason Stop Dose Admin Acetaminophen 650 mg 09/12/24 05:43 Acetaminophen 325 Mg Tablet PO 10/12/24 05:42 Q6H PRN Fever >100.3 or pain 1-3 Amiodarone HCl 200 mg 09/12/24 09:30 09/12/24 09:55 Amiodarone Hcl 200 Mg Tablet PO 10/12/24 09:29 200 mg QDAY ELLI Administration Aspirin 81 mg 09/12/24 09:00 09/12/24 09:55 Aspirin Ec 81 Mg Tabec PO 10/12/24 08:59 81 mg QDAY ELLI Administration Atorvastatin Calcium 80 mg 09/12/24 21:00 Atorvastatin Calcium 20 Mg Tablet PO 10/12/24 20:59 HS ELLI Clopidogrel Bisulfate 75 mg 09/12/24 09:00 09/12/24 09:55 Clopidogrel Bisulfate 75 Mg Tablet PO 10/12/24 08:59 75 mg QDAY ELLI Administration Enoxaparin Sodium 40 mg 09/12/24 09:00 09/12/24 09:55 Enoxaparin Sod Inj 40 Mg/0.4 Ml Syringe SC 09/26/24 08:59 40 mg QDAY ELLI Administration Ondansetron HCl 4 mg 09/12/24 05:43 Ondansetron Inj 2 Mg/Ml Inj 2 Ml IVP 10/12/24 05:42 Q6H PRN NAUSEA OR VOMITING Protocol Sennosides 1 tab 09/12/24 05:43 Senna Tablet PO 10/12/24 05:42 QDAY PRN constipation Protocol Plan Summary: Hilda Segundo is 54 yr male with PMH of HTN, A fib and started on amiodarone, and stroke 2 yrs ago who is presenting to ED due to left arm/face tingling, numbness. This started yesterday around 3 pm. Stroke alert initiated. Patient to be admitted for workup CVA. #Left arm, face, neck numbness #CVA rule out #History of cervical surgery CVA vs TIA vs cardiac etiology versus musculoskeletal Symptoms started yesterday 3:30 PM. Numbness, feels bounding pulses in his lower portion of face as well. Patient reported that the symptoms come and episodes for 2 to 3 minutes and disappeared by self, no relation with head movement, he has history of cervical surgery. stroke alert was initiated in the ED until he neuro assessed the patient. NIHSS score was 1. Not a candidate for any thrombolytics. Xarelto was stopped 2 years ago and aspirin was discontinued recently by office systems technology instructor in [place]. Troponins are negative, EKG negative for acute ischemic changes. CT head negative, CTA head and neck negative for LVO or stenosis. LDL 103, TSH and A1c are pending. Plan: ? Continue aspirin 81mg and Plavix 75mg daily, will resume his Xarelto if MRI was negative ? Echo, MRI pending ?Will consider outpatient cervical MRI if MRI and echo result were normal ? Head of bed elevation 30 degrees ? 10 mg IV labetalol every 4 hours as needed if SBP 180 ? Increase home med atorvastatin to 80mg daily ? Resume home med amiodarone 200mg daily for his history of questionable V-fib #Heterogeneous thyroid nodule (incidental finding) CT scan showed 15 mm of heterogeneous thyroid nodule. Patient denied any symptoms. Less likely to be related to his symptoms Plan ? 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 Takes bisprolol 10mg daily. Patient reported that he has gone under cardiac cath, he said that he has history of deformity of the left ventricle with blood clot hence he is on Xarelto. Aspirin and Plavix at home. EKG shows sinus rhythm. Troponin x 3 was negative. Plan ?Echo with bubble study pending ?Labetalol 10 mg IV if SBP more than 180 -Resume home Amiodarone pending med rec. -Hold Bisoprolol for permissive HTN Health maintenance: Dispo: tele for CVA workup FEN: cardiac DVT prophylaxis: Lovenox 40mg CODE STATUS: Full code - Patient's plan and care discussed with my attending, Dr. Ronn Samson MD Internal Medicine PGY-3 Attending Provider Attestation/Addendum IAlina DO, attest that I was physically present for the dominguez portions of the service and evaluated the patient with the resident and I reviewed and discussed the case with the resident and agree with the resident's findings and plans of care as documented above Patient seen eval this a.m. Patient was admitted due to stroke workup. He complains of painful shocks in his left shoulder that radiates down his arm that is associated with numbness and tingling. Patient states that he has had prior episodes in the past, but not to this extent. He does suffer from migraines in the past and has a history of cervical spine surgery as well. There is minimal pain/numbness reproduced upon movement of left upper extremity. Patient does take Xarelto at home given history of possible left ventricular thrombus. Currently pending MRI and echo. Will restart Xarelto if MRI does not show any evidence of acute infarct due to concern for hemorrhagic conversion. Will follow-up with neurology recommendations otherwise. Gross sensation is intact in bilateral upper and lower extremities. Strength is 4+ out of 5 in all 4 extremities. No focal neurological deficits noted on exam.
--- NOTE | 2024-09-12 13:01 | PC.PT ---
PT eval only. Patient is I with transfers and ambulation without AD.
[2024-09-12] MEDS: ATORVASTATIN CALCIUM 20 MG TABLET 80 MG PO (21:14)
[2024-09-12] MEDS: ACETAMINOPHEN 325 MG TABLET 650 MG PO (21:23)
[2024-09-13] VITALS (9 sets, daily range): BP systolic 108–134; BP diastolic 64–82; PULSE 61–91; RESP 17–96; TEMP 35.9–36.3; O2SAT 92–96
--- NOTE | 2024-09-13 01:40 | PC.NURSE ---
made resident Felipe aware of patient complaining of occipital headache, neck stiffness pain currently 10/21 . patient received PO PRN for pain with no elevation of pain. per Resident to place orders after review
[2024-09-13] MEDS: KETOROLAC INJ 30 MG/ML VIAL 15 MG IVP (01:55)
[2024-09-13 05:48] LABS: Basophils # (Auto) 0.0 Thou/mm3 (0.0-0.2); Basophils % (Auto) 1 % (0-2.5); Eosinophils # (Auto) 0.1 Thou/mm3 (0.0-0.5); Eosinophils % (Auto) 1 % (0-10); Hematocrit 42.7 % (41.0-53.0); Hemoglobin 13.9 g/dL (13.5-16.0); Immature Granulocytes Auto 0.03 Thou/mm3 (0.00-0.00); Lymphocytes # (Auto) 3.6 Thou/mm3 (1.0-4.8); Lymphocytes % (Auto) 44 % (10-50); Mean Corpuscular HGB Conc 32.6 g/dl (31.0-37.0); Mean Corpuscular Hemoglobin 29.3 pg (25.0-35.0); Mean Corpuscular Volume 90 fL (80-100); Monocytes # (Auto) 0.6 Thou/mm3 (0.0-0.8); Monocytes % (Auto) 8 % (0-12); Neutrophils # (Auto) 3.8 Thou/mm3 (1.8-7.7); Neutrophils % (Auto) 47 % (37-80); Nucleated Red Blood Cell # 0.00 Thou/mm3 (0.00-0.00); Nucleated Red Blood Cell % 0 /100 WBC (0); Platelet Count 235 Thou/mm3 (140-440); RDW Standard Deviation 42.5 fL (35.1-43.9); Red Blood Count 4.75 Miln/mm3 (4.50-5.90); White Blood Count 8.2 Thou/mm3 (3.8-10.6)
[2024-09-13 06:08] LABS: Glucose Estimated Average 117 mg/dL (80-131); Hemoglobin A1C 5.7 % Hgb (4.8-6.0)
[2024-09-13 06:26] LABS: Alanine Aminotransferase 21 U/L (10-49); Albumin, Serum 4.1 gm/dL (3.5-5.0); Albumin/Globulin Ratio 1.9 (1.2-2.2); Alkaline Phosphatase 62 U/L (46-116); Anion Gap 10 (7-16); Aspartate Amino Transferase 27 U/L (0-34); BUN/Creatinine Ratio 11 Ratio (12-20); Bilirubin,Total 0.6 mg/dL (0.3-1.2); Blood Urea Nitrogen 13 mg/dL (9-23); Calcium 9.1 mg/dL (8.3-10.6); Calcium (Corrected) 9.1 mg/dL (8.5-10.1); Carbon Dioxide 26.3 mMol/L (20.0-31.0); Chloride 106 mMol/L (98-107); Creatinine (Component) 1.2 mg/dL (0.6-1.3); Estimated Creatinine Clearance 87.5 mL/min (>60); Globulin 2.2 gm/dL (2.3-3.5); Glucose 104 mg/dL (74-106); Magnesium 2.3 mg/dL (1.6-2.6); Osmolality,Calculated 283 (275-295); Phosphorous 5.2 mg/dL (2.4-5.1); Potassium 4.3 mMol/L (3.4-5.1); Sodium 142 mMol/L (136-145); Thyroid Stimulating Hormone 1.56 uIU/mL (0.55-4.78); Total Protein 6.3 gm/dL (5.7-8.2); eGFR > 60 See Note
--- NOTE | 2024-09-13 08:29 | PD.RESPRO ---
Documentation for date of: 09/13/24 Exam Vital Signs Temp Pulse Resp BP Pulse Ox O2 Del Method 96.9 F 80 17 108/70 92 L Room Air 09/13/24 04:00 09/13/24 05:43 09/13/24 05:43 09/13/24 04:00 09/13/24 04:00 09/13/24 04:00 Objective Labs 09/13/24 05:25 09/13/24 05:25 Labs: Laboratory Results - last 24 hr 09/13/24 05:25 WBC 8.2 RBC 4.75 Hgb 13.9 Hct 42.7 MCV 90 MCH 29.3 MCHC 32.6 RDW Std Deviation 42.5 Plt Count 235 D Neut % (Auto) 47 Lymph % (Auto) 44 [place] % (Auto) 8 Eos % (Auto) 1 Baso % (Auto) 1 Neut # (Auto) 3.8 Lymph # (Auto) 3.6 [place] # (Auto) 0.6 Eos # (Auto) 0.1 Baso # (Auto) 0.0 Immature Gran # (Auto) 0.03 H Absolute Nucleated RBC 0.00 Immature Gran % 0 Nucleated RBC % 0 Sodium 142 Potassium 4.3 Chloride 106 Carbon Dioxide 26.3 Anion Gap 10 BUN 13 Creatinine 1.2 Estim Creat Clear Calc 87.5 eGFR > 60 BUN/Creatinine Ratio 11 L Glucose [address] Glu mg/dL 117 Hemoglobin A1c 5.7 Calculated Osmolality 283 Calcium 9.1 Corrected Calcium 9.1 Phosphorus 5.2 H Magnesium 2.3 Total Bilirubin 0.6 AST 27 ALT 21 Alkaline Phosphatase 62 Total Protein 6.3 Albumin 4.1 D Globulin 2.2 L Albumin/Globulin Ratio 1.9 TSH 1.56 Quality Measures Quality Measures none Assessment & Plan Assessment Current Active Medications: Generic Name Dose Route Start Last Admin Trade Name Freq PRN Reason Stop Dose Admin Acetaminophen 650 mg 09/12/24 05:43 09/12/24 21:23 Acetaminophen 325 Mg Tablet PO 10/12/24 05:42 650 mg Q6H PRN Administration Fever >100.3 or pain 1-3 Amiodarone HCl 200 mg 09/12/24 09:30 09/12/24 09:55 Amiodarone Hcl 200 Mg Tablet PO 10/12/24 09:29 200 mg QDAY ELLI Administration Aspirin 81 mg 09/12/24 09:00 09/12/24 09:55 Aspirin Ec 81 Mg Tabec PO 10/12/24 08:59 81 mg QDAY ELLI Administration Atorvastatin Calcium 80 mg 09/12/24 21:00 09/12/24 21:14 Atorvastatin Calcium 20 Mg Tablet PO 10/12/24 20:59 80 mg HS ELLI Administration Clopidogrel Bisulfate 75 mg 09/12/24 09:00 09/12/24 09:55 Clopidogrel Bisulfate 75 Mg Tablet PO 10/12/24 08:59 75 mg QDAY ELLI Administration Enoxaparin Sodium 40 mg 09/12/24 09:00 09/12/24 09:55 Enoxaparin Sod Inj 40 Mg/0.4 Ml Syringe SC 09/26/24 08:59 40 mg QDAY ELLI Administration Ondansetron HCl 4 mg 09/12/24 05:43 Ondansetron Inj 2 Mg/Ml Inj 2 Ml IVP 10/12/24 05:42 Q6H PRN NAUSEA OR VOMITING Protocol Sennosides 1 tab 09/12/24 05:43 Senna Tablet PO 10/12/24 05:42 QDAY PRN constipation Protocol
[2024-09-13] MEDS: AMIODARONE HCL 200 MG TABLET PO (09:36)
[2024-09-13] MEDS: ASPIRIN EC 81 MG TABEC PO (09:36)
[2024-09-13] MEDS: CLOPIDOGREL BISULFATE 75 MG TABLET PO (09:37)
[2024-09-13] MEDS: ENOXAPARIN SOD INJ 40 MG/0.4 ML SYRINGE SC (09:37)
--- NOTE | 2024-09-13 14:45 | ESPR_ITS ---
Tele Neuro Progress Note Progress Note Date 09/13/24 Most Recent Vital Signs Last Vital Signs Temp 97.4 F 09/13/24 12:00 Pulse 91 09/13/24 12:00 Resp 20 09/13/24 12:00 BP 116/70 09/13/24 12:00 Pulse Ox 94 L 09/13/24 12:00 O2 Del Method Room Air 09/13/24 12:00 Laboratory-Coagulation Panel PT 11.7 Seconds (9.0-12.2) 09/12/24 03:03 INR 1.1 (0.9-1.3) 09/12/24 03:03 APTT 26.8 Seconds (22.0-36.0) 09/12/24 03:03 Progress Note Narrative [facility] TeleNeurology Consult Services Routine Consult Follow-Up Patient Name:???Hilda Segundo Date of :???1970 Identification Number:??? Date of Service:???09/13/2024 14:19:38 Diagnosis?R20.2 - Paresthesia of skin Impression This is a 54 year old man with history of hypertension and heart troubles here with spells characterized by left sided numbness/weakness, shortness of breath, and chest pain,. Brain MRI does not show any evidence of stroke. CTA of the head and neck does not show any significant stenosis. His recurrent episodes could be explained by TIA however the recurrent nature is somewhat atypical for TIA. Because he is having associated chest pain and weakness I do recommend cardiology consultation as well. In the meantime , I would recommend that he stay on dual antiplatelet therapy and statin for primary stroke prevention if he has no indication for anticoagulation. Recommendations The patient is on triple therapy with aspirin, Plavix and Xarelto From a stroke prevention standpoint we would typically only do anticoagulation and discontinue antiplatelet therapy, I would ultimately defer to cardiology Consider cardiology consultation due to associated chest pain Defer decision regarding echocardiogram to primary team and cardiology Continue atorvastatin for LDL goal less than 70 Blood pressure goal less than 140/90 Telemetry PT, OT, speech therapy A1c goal less than 7 Due to unclear cause of symptoms I do recommend neurology follow-up within 2 months of discharge Neurology will sign off, please call with questions Our recommendations are outlined below Diagnostic Studies :Holter/Loop Recorder as outpatient with cardiology follow up Antithrombotic Medication :Statins for LDL goal less than 70 Nursing Recommendations :Neuro checks q4 hrs x 24 hrs and then per shiftContinue with Telemetry Consultations :Recommend Speech therapy if failed dysphagia screenPhysical therapy/Occupational therapy DVT Prophylaxis :SCDs, Pneumatic Compression Disposition :No further recommendationsOutpatient Neurology follow up in 3-6 weeks Subjective Patient was brought by private transportation with symptoms of left sided numbness. This is a 54 year old man with history of hypertension and heart troubles here with left sided weakness and numbness stroke alert called for the same. The patient has had 5 spells characterized by shortness of breath, chest pain, and left sided numbness/weakness, each lasting minutes as opposed to seconds or hours. The patient has not felt *completely* at his normal since 3:30 pm the day prior to presentation when his first episode occurred. He also has chest pain and headache. An site interpreter was offered but politely declined- his daughter helped interpret. Hospital Course 09/13- daughter is at bedside, he has had multiple episodes in the past but he is currently at baseline. Imaging Brain MRI without contrast with no acute intracranial abnormality CTA of the head and neck with no significant stenosis or LVO Labs LDL 102 TSH 1.56 A1c 5.7 ? Examination BP(116/70),?Pulse(91),?Temp(97.4),?Resp(20), 1A: Level of Consciousness - Alert; keenly responsive?+ 0 1B: Ask Month and Age - Both Questions Right?+ 0 1C: Blink Eyes & Squeeze Hands - Performs Both Tasks?+ 0 2: Test Horizontal Extraocular Movements - Normal?+ 0 3: Test Visual Patel - No Visual Loss?+ 0 4: Test Facial Palsy (Use Grimace if Obtunded) - Normal symmetry?+ 0 5A: Test Left Arm Motor Drift - No Drift for 10 Seconds?+ 0 5B: Test Right Arm Motor Drift - No Drift for 10 Seconds?+ 0 6A: Test Left Leg Motor Drift - No Drift for 5 Seconds?+ 0 6B: Test Right Leg Motor Drift - No Drift for 5 Seconds?+ 0 7: Test Limb Ataxia (FNF/Heel-Patel) - No Ataxia?+ 0 8: Test Sensation - Mild-Moderate Loss: Less Sharp/More Dull?+ 1 9: Test Language/Aphasia - Normal; No aphasia?+ 0 10: Test Dysarthria - Normal?+ 0 11: Test Extinction/Inattention - No abnormality?+ 0 NIHSS Score:?1 ? This consult was conducted in real time using interactive audio and video technology. Patient was informed of the technology being used for this visit and agreed to proceed. Patient located in hospital and provider located at home/office setting. Telehealth Neurology consultation was provided. I spent 30 minutes providing telehealth care. This includes time spent for face to face visit via telemedicine, review of medical records, imaging studies and discussion of findings with providers, the patient and/or family. Dr Osiris Hinds [facility] For Inpatient follow-up with [facility] physician please call [facility] at . As we are not an outpatient service for any post hospital discharge needs please contact the hospital for assistance. If you have any questions for the [facility] physicians or need to reconsult for clinical or diagnostic changes please contact us via [facility] at Signature :?Osiris Hinds ?
--- NOTE | 2024-09-13 15:55 | ESDS_ITS ---
<Statement entered by Alina Brody DO - 09/13/24 17:07> I, Alina Brody DO, attest that I was physically present for the dominguez portions of the service and evaluated the patient with the resident and I reviewed and discussed the case with the resident and agree with the resident's findings and plans of care as documented above <Statement entered by Kimmy Samson MD - 09/13/24 16:42> Patient was seen and examined at bedside. He today reported that he has stopped using his Xarelto and aspirin which can contradict what he mention to us previou sly. On review of the patient medications he mentions that he only take clopidogrel at this time and his Xarelto and aspirin was stopped by Dr. Tobin in [place] his case packer and sealer. Teleneurologist believe that could be a TIA however due to the recurrence he remains low suspicion. Patient will be discharged on aspirin and Plavix as per the neurologist recommendations, patient was instructed to follow-up with Dr. Tobin and the neurologist as outpatient settings within 1 to 2 weeks from discharge. Patient was instructed to stop taking any NSAIDs to decrease the risk of thrombosis or bleeding. - Patient's plan and care discussed with my attending, Dr. Ronn Samson MD Internal Medicine PGY-3 Planned Discharge Date 09/13/24 DS: Providers Provider Date of admission: 09/12/24 05:43 Primary care physician: Rosalee Small PA-C Admitting Provider: Bronson Woods MD Attending Provider on Admission: Bronson Woods MD Consults: 09/12/24 02:50 Consult to Neurology / Tele-Neurology Routine Comment: Consulting Provider: [facility] 09/12/24 07:23 Referral Physical Therapy Routine Comment: Physician Instructions: Attending Provider on DC: RESIDENT Irene Discharging Provider: RESIDENT Irene DS: Diagnosis Problem List Completed Was Problem List Reviewed/Reconciled?: Yes Hospital Course Hospital Course Hospital course: Hilda Segundo is 54 yr male with PMH of HTN, V fib and started on amiodarone, and stroke 2 yrs ago who is presenting to ED due to left arm/face tingling, numbness. Patient admitted for CVA work up. ED Course Summary: In ED, vitals were stable. Labs benign with negative troponins. EKG negative for acute ST changes. Stroke alert called. CT head negative, CTA head and neck negative for LVO or stenosis. He was not a candidate for any thrombolytics. NIHSS score 1 by tele neuro. Hospital Course Summary: Neurology was consulted stating TIA unlikely because recurrent nature of symptoms and recommends cardiology follow up. Brain MRI does not show any evidence of stroke. CTA of the head and neck does not show any significant stenosis. Troponin was trended and found to be negative. Patient states not taking xarelto, aspirin, or plavix per orders of his case packer and sealer. He was given amiodarone 200mg QD, atorvastatin 80 mg while admitted. Hilda Segundo is 54 yr male with PMH of HTN, A fib and started on amiodarone, and stroke 2 yrs ago who is presenting to ED due to left arm/face tingling, numbness. This started yesterday around 3 pm. Stroke alert initiated. Patient to be admitted for workup CVA. Patient's symptoms have resolved and stroke workup was found to be negative. He no longer requires hospital services. He is encouraged to follow up with his cardiologists following discharge. Discharge instructions: Please return to primary care provider within 1 week from discharge to follow-up and also to address incidental thyroid nodule Please follow-up with your case packer and sealer Dr. 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 Brody, and supervising resident MD Edwin Hare MD Internal Medicine PGY-1 Time Spent with Patient Time attestation: Total time spent providing and/or coordinating discharge services: Time spent: Greater than 30 minutes Exam Vital Signs Temp Pulse Resp BP Pulse Ox O2 Del Method 97.0 F 89 19 125/82 96 Room Air 09/13/24 15:45 09/13/24 15:45 09/13/24 15:45 09/13/24 15:45 09/13/24 15:45 09/13/24 15:45 Narrative Exam GEN: AOx3, able to speak full sentences HEENT: NC/AC, PERRLA, oral mucosa moist, neck supple CVS: RRR, S1-S2 present, no murmurs appreciated RESP: CTAB GI: soft,non distended, non tender, NBS MSK: able to move all 4 limbs, no lower extremity edema SKIN: warm and dry APPLICATION ARCHITECT MANAGER: CN II-XII and Sensation grossly intact. Discharge Plan Plan Patient Disposition: HOME (Self Care) Patient condition on transfer: Stable and Benefits outweigh risks Care Plan Goals: Summary of your hospitalization: You have presented with signs and symptoms of a stroke, however, MRI and CT scanning of the brain were all negative. Could be as a result of something called TIA, however the recurrent nature is unusual for this condition. For that reason we will keep you on aspirin and Plavix and you have to follow-up with your case packer and sealer and your neurologist. Incidentally we found that you have a 15 mm heterogeneous thyroid nodule, you have to follow-up with your primary care provider for further assessment. Discharge instructions: Please return to primary care provider within 1 week from discharge to follow-up and also to address incidental thyroid nodule Please follow-up with your case packer and sealer Dr. Tobin within 1 week from discharge to do an echocardiogram Follow-up with your neurologist within 2 to 3 weeks from discharge Stop using naproxen as it may interact with your aspirin and Plavix Continue other meds as prescribed In case of worsening of your symptoms please return to the ED as soon as possible Prescriptions/Referrals Prescriptions/Med Rec: Continued amiodarone 200 mg tablet 200 mg PO QDAY Patient Comments: TAKE 1 TABLET BY MOUTH EVERY DAY clopidogrel 75 mg tablet 75 mg PO QDAY Patient Comments: TAKE 1 TABLET BY MOUTH EVERY DAY aspirin 81 mg tablet,delayed release (DR/EC) 81 mg PO QDAY Patient Comments: TAKE 1 TABLET BY MOUTH EVERY DAY bisoprolol fumarate 10 mg tablet 10 mg PO QDAY Patient Comments: TAKE 1 TABLET BY MOUTH EVERY DAY rosuvastatin 40 mg tablet 40 mg PO QDAY Patient Comments: TAKE 1 TABLET BY MOUTH EVERY DAY ergocalciferol (vitamin D2) 1,250 mcg (50,000 unit) capsule Discontinued prednisone 20 mg tablet 20 mg PO QDAY Patient Comments: PO once a day naproxen 500 mg tablet Patient Comments: TAKE 1 TABLET BY MOUTH TWICE A DAY NEEDED FOR PAIN Referrals: Rosalee Small PA-C [Primary Care Provider] - Patient/Caregiver Discharge Instructions Discharge Activity: as per physical therapy and activity as tolerated Education Materials: Symptoms of Stroke, What Is Ischemic Stroke?, What Is a TIA?, Stroke: Taking Medicines, Preparing Your Home After Stroke, Stroke: Self- Care, Discharge Instructions for Stroke, What is Hemorrhagic Stroke?, Risk Factors for Stroke Print Language: Welsh Stand Alone Forms: Mae Award Info., Patient Portal Info Letter Discharge Order Discharge Orders: Discharge (Routine); Ordered 09/13/24 Ordered By: Alina Brody Quality Discharge Quality Measures none
== END 2024-09-13 17:30 | disposition home or self-care (01) ==
LOC: SERX 06:06 → S2NX 09-13 15:43 → SERHOLD 09-14 08:01 → S2NX 09-14 08:03
PROVIDERS: Physician Assistant; Admitting Provider Student in an Organized Health Care Education/Training Program; Emergency Provider Emergency Medicine; PCP Physician Assistant; Visit Provider Student in an Organized Health Care Education/Training Program
DX: R20.0 Anesthesia of skin (principal); E04.1 Nontoxic single thyroid nodule; I10 Essential (primary) hypertension; Z86.73 Personal history of transient ischemic attack (TIA), and cerebral infarction without residual deficits; Z86.79 Personal history of other diseases of the circulatory system; Z01.810 Encounter for preprocedural cardiovascular examination; R06.02 Shortness of breath; R07.9 Chest pain, unspecified; I25.10 Atherosclerotic heart disease of native coronary artery without angina pectoris; R47.81 Slurred speech; R51.9 Headache, unspecified; M79.622 Pain in left upper arm; F17.200 Nicotine dependence, unspecified, uncomplicated; Z86.718 Personal history of other venous thrombosis and embolism
CPT/HCPCS: 36415; 70450; 70496; 70498; 70544; 71045; 80053; 80061; 80307; 81001; 83036; 83735; 84100; 84443; 84484; 85025; 85610; 85730; 87086; 87811; 92610; 93005; 97162; A4649; G0378; J1650; J1885; Q9967; A9270

== ENCOUNTER → 2024-09-24 | Outpatient (CLI) | payer MEDICAID, SELFPAY ==
--- NOTE | 2024-09-24 16:18 | XR_ITS ---
Examination: CT cervical spine without contrast 2-D sagittal reconstructions 2-D coronal reconstructions 3-D reconstructions. Exam date and time:September 24, 2024 1705 hours INDICATIONS: Neck pain beginning 2 months ago, history neck surgery 2 years ago CTDI:vol (mGy) 15.4 DLP: (mGycm) 382. Technique: Multiple 2 mm axial sections of the cervical spine have been obtained. The coronal and sagittal reconstructions have been obtained. 3-D reconstructions have been obtained. Low dose protocols were performed. One or more of the following dose reduction techniques were used; automated exposure control, adjustment of the mA and/or KV according to patient size, use of iterative reconstruction technique. Findings: Axial sections demonstrate intact base of the skull. C1 exhibit satisfactory relationship to the odontoid. No acute cervical vertebral body fracture seen. Alignment posterior spinous processes satisfactory. Cervical fusion C5-C7 with satisfactory alignment The disc spaces are still evident C5-C6 moderate left neural foraminal stenosis Impression: No acute cervical fracture. Cervical fusion C5-C7 with satisfactory alignment, the disc spaces are still evident C5-C6 moderate left neural foraminal stenosis
== END | disposition home or self-care (01) ==
PROVIDERS: PCP Physician Assistant; Referring Provider Physician Assistant; Visit Provider Physician Assistant
DX: M48.02 Spinal stenosis, cervical region (principal); M54.2 Cervicalgia; M43.22 Fusion of spine, cervical region
CPT/HCPCS: 72125

== ENCOUNTER → 2024-11-17 | Outpatient (CLI) | payer MEDICAID, SELFPAY ==
--- NOTE | 2024-11-17 15:00 | XR_ITS ---
EXAMINATION: Thyroid sonography complete TECHNIQUE: Grayscale sonographic images thyroid lobes Date and time: November 17, 2024, 1511 hours INDICATIONS: CT examination September 12, 2024, 15 FINDINGS: Right thyroid 4.3 cm Lower pole nodule 8 x 8 mm Left thyroid 4.9 cm Lower pole nodule 20 x 14 mm IMPRESSION: Bilateral thyroid nodules as above mm enhancing left thyroid nodule
== END | disposition home or self-care (01) ==
PROVIDERS: PCP Physician Assistant; Referring Provider Physician Assistant; Visit Provider Physician Assistant
DX: E04.2 Nontoxic multinodular goiter (principal)
CPT/HCPCS: 76536